=== PATIENT | male | born 1975 | race Caucasian/White ===

== ENCOUNTER 2023-08-21 11:53 | Emergency (ER) | payer SELFPAY ==
[~2023-08-21] VITALS: Ht 162.6 cm; Wt 102.1 kg
[2023-08-21 12:06] VITALS: BP_SYST 141; PULSE 67; RESP 18; TEMP 98.3; O2SAT 98
[2023-08-21] MEDS ORDERED: CEPH250C PO (12:19)
[2023-08-21] MEDS ORDERED: IBUP-1971 PO (12:19)
[2023-08-21] MEDS ORDERED: CORTEARS EACH EAR (12:19)
[2023-08-21 13:24] VITALS: BP_SYST 141; PULSE 67; RESP 18; TEMP 98.3; O2SAT 98
== END 2023-08-21 13:26 | disposition home or self-care (01) ==
LOC: SED 11:53
DX: H60.501 Unspecified acute noninfective otitis externa, right ear (principal)
CPT/HCPCS: 99283